=== PATIENT | male | born 1950 | race Caucasian/White ===

== ENCOUNTER 2019-03-27 08:33 | Outpatient (CLI) | payer MEDICARE, SELFPAY ==
[2019-03-27 09:00] LABS: Creatinine Urine 123.23 mg/dL (40-278)
[2019-03-27 09:02] LABS: Hemoglobin A1C 7.2 % (<5.7)
[2019-03-27 09:29] LABS: MALB Creatinine Ratio 9.9 mg/g (0-30); Microalbumin Urine Random 12.3 mg/L
[2019-03-27 10:42] LABS: Anion Gap 14.7 mmol/L (7-16); Blood Urea Nitrogen 16 mg/dL (7-18); Calcium 9.1 mg/dL (8.5-10.1); Carbon Dioxide 28 mmol/L (21-32); Chloride 106 mmol/L (98-108); Cholesterol 121 mg/dL (0-200); Estimated Glomerular Filt Rate > 60; Glucose 103 mg/dL (70-99); HDL Direct 34 mg/dL (40-60); LDL Cholesterol Calculated 76 mg/dL (<130); Osmolality Calculated 299 mOsm/kg (285-295); Potassium 4.7 mmol/L (3.5-5.1); Sodium 144 mmol/L (136-145); Triglycerides 56 mg/dL (0-150)
== END 2019-03-27 08:34 | disposition home or self-care (01) ==
PROVIDERS: PCP Family Medicine; Visit Provider Family Medicine
DX: E78.5 Hyperlipidemia, unspecified (principal); E11.9 Type 2 diabetes mellitus without complications
CPT/HCPCS: 36415; 80048; 80061; 82043; 83036

== ENCOUNTER 2019-06-26 08:52 | Outpatient (CLI) | payer MEDICARE, SELFPAY ==
[2019-06-26 09:16] LABS: Hemoglobin A1C 8.2 % (<5.7)
== END 2019-06-26 08:53 | disposition home or self-care (01) ==
PROVIDERS: PCP Family Medicine; Visit Provider Family Medicine
DX: E11.9 Type 2 diabetes mellitus without complications (principal)
CPT/HCPCS: 36415; 83036

== ENCOUNTER 2019-10-11 14:57 | Outpatient (CLI) | payer MEDICARE, SELFPAY ==
[2019-10-11 15:07] LABS: Basophils Absolute Auto 0.04 K/mm3 (0.00-0.10); Basophils Percent Auto 0.4 % (0.0-1.0); Eosinophils Absolute Auto 0.58 K/mm3 (0.02-0.50); Eosinophils Percent Auto 6.1 % (1.0-6.0); Hemoglobin 15.2 g/dL (12.4-15.3); Immature Granulocyte Absolute 0.04 K/mm3 (0.00-0.00); Immature Granulocyte Percent A 0.4 % (0.0-0.0); Lymphocytes Absolute Auto 1.71 K/mm3 (1.10-4.50); Lymphocytes Percent Auto 17.9 % (18.0-42.0); Mean Corpuscular Hemoglobin 29.5 pg (27.0-31.0); Mean Corpuscular Volume 89.3 fL (78.0-102.0); Mean Platelet Volume 9.9 fl (8.7-11.0); Monocytes Absolute Auto 0.75 K/mm3 (0.10-0.90); Monocytes Percent Auto 7.9 % (2.0-11.0); Neutrophils Absolute Auto 6.4 K/mm3 (1.7-7.2); Neutrophils Percent Auto 67.3 % (50.0-70.0); Platelet Count Result 269 K/mm3 (150-420); Red Blood Count 5.15 M/mm3 (4.70-6.10); Red Cell Distribution Width 12.9 % (11.6-14.4); White Blood Count 9.5 K/mm3 (4.8-10.8)
[2019-10-11 15:24] LABS: Hemoglobin A1C 7.1 % (<5.7)
[2019-10-11 16:02] LABS: Alanine Aminotransferase 27 U/L (16-63); Albumin Level 4.5 g/dL (3.4-5.0); Alkaline Phosphatase 64 U/L (46-116); Anion Gap 8 mmol/L (8-16); Aspartate Amino Transferase 15 U/L (15-37); Bilirubin,Total 0.6 mg/dL (0.00-1.00); Blood Urea Nitrogen 20 mg/dL (7-18); Calcium 10.4 mg/dL (8.5-10.1); Carbon Dioxide 29 mmol/L (21-32); Chloride 103 mmol/L (98-108); Estimated Glomerular Filt Rate > 60; Glucose 133 mg/dL (70-99); Osmolality Calculated 294 mOsm/kg (285-295); Sodium 140 mmol/L (136-145); Total Protein 7.5 g/dL (6.4-8.2)
[2019-10-11 16:04] LABS: Thyroid Stimulating Hormone Reflex 1.29 u/IU/mL (0.36-3.74)
== END 2019-10-11 14:58 | disposition home or self-care (01) ==
LOC: CHSLAB 14:59
PROVIDERS: PCP Family Medicine; Visit Provider Family Medicine
DX: E11.9 Type 2 diabetes mellitus without complications (principal)
CPT/HCPCS: 36415; 80053; 83036; 84443; 85025

== ENCOUNTER 2020-01-10 14:55 | Outpatient (CLI) | payer MEDICARE, SELFPAY ==
[2020-01-10 15:11] LABS: Basophils Absolute Auto 0.05 K/mm3 (0.00-0.10); Basophils Percent Auto 0.6 % (0.0-1.0); Eosinophils Absolute Auto 0.51 K/mm3 (0.02-0.50); Eosinophils Percent Auto 6.2 % (1.0-6.0); Hematocrit 46.8 % (37.0-46.0); Hemoglobin 15.2 g/dL (12.4-15.3); Immature Granulocyte Absolute 0.05 K/mm3 (0.00-0.00); Immature Granulocyte Percent A 0.6 % (0.0-0.0); Lymphocytes Absolute Auto 1.74 K/mm3 (1.10-4.50); Lymphocytes Percent Auto 21.3 % (18.0-42.0); Mean Corpuscular HGB Conc 32.5 g/dL (32.0-36.0); Mean Corpuscular Hemoglobin 28.6 pg (27.0-31.0); Mean Corpuscular Volume 88.1 fL (78.0-102.0); Mean Platelet Volume 10.1 fl (8.7-11.0); Monocytes Absolute Auto 0.59 K/mm3 (0.10-0.90); Monocytes Percent Auto 7.2 % (2.0-11.0); Neutrophils Absolute Auto 5.2 K/mm3 (1.7-7.2); Neutrophils Percent Auto 64.1 % (50.0-70.0); Platelet Count Result 243 K/mm3 (150-420); Red Blood Count 5.31 M/mm3 (4.70-6.10); White Blood Count 8.2 K/mm3 (4.8-10.8)
[2020-01-10 15:21] LABS: Hemoglobin A1C 7.1 % (<5.7)
[2020-01-10 17:06] LABS: Alanine Aminotransferase 25 U/L (16-63); Albumin Level 4.1 g/dL (3.4-5.0); Alkaline Phosphatase 54 U/L (46-116); Anion Gap 10 mmol/L (8-16); Aspartate Amino Transferase 14 U/L (15-37); Bilirubin,Total 0.4 mg/dL (0.00-1.00); Blood Urea Nitrogen 18 mg/dL (7-18); Calcium 9.9 mg/dL (8.5-10.1); Carbon Dioxide 26 mmol/L (21-32); Chloride 103 mmol/L (98-108); Estimated Glomerular Filt Rate > 60; Glucose 144 mg/dL (70-99); Osmolality Calculated 292 mOsm/kg (285-295); Potassium 4.9 mmol/L (3.5-5.1); Sodium 139 mmol/L (136-145); Total Protein 7.2 g/dL (6.4-8.2)
== END 2020-01-10 14:56 | disposition home or self-care (01) ==
LOC: CHSLAB 14:57
PROVIDERS: PCP Family Medicine; Visit Provider Family Medicine
DX: E11.9 Type 2 diabetes mellitus without complications (principal)
CPT/HCPCS: 36415; 80053; 83036; 85025

== ENCOUNTER 2020-07-10 14:28 | Outpatient (CLI) | payer MEDICARE, SELFPAY ==
[2020-07-10 14:38] LABS: Basophils Absolute Auto 0.04 K/mm3 (0.00-0.10); Basophils Percent Auto 0.5 % (0.0-1.0); Eosinophils Absolute Auto 0.53 K/mm3 (0.02-0.50); Eosinophils Percent Auto 6.7 % (1.0-6.0); Hematocrit 44.3 % (37.0-46.0); Hemoglobin 14.6 g/dL (12.4-15.3); Immature Granulocyte Absolute 0.05 K/mm3 (0.00-0.00); Immature Granulocyte Percent A 0.6 % (0.0-0.0); Lymphocytes Absolute Auto 1.64 K/mm3 (1.10-4.50); Lymphocytes Percent Auto 20.8 % (18.0-42.0); Mean Corpuscular Hemoglobin 29.1 pg (27.0-31.0); Mean Corpuscular Volume 88.2 fL (78.0-102.0); Monocytes Absolute Auto 0.63 K/mm3 (0.10-0.90); Neutrophils Percent Auto 63.4 % (50.0-70.0); Platelet Count Result 249 K/mm3 (150-420); Red Blood Count 5.02 M/mm3 (4.70-6.10); Red Cell Distribution Width 13.2 % (11.6-14.4); White Blood Count 7.9 K/mm3 (4.8-10.8)
[2020-07-10 14:48] LABS: Hemoglobin A1C 8.1 % (<5.7)
[2020-07-10 16:09] LABS: Alanine Aminotransferase 32 U/L (16-63); Albumin Level 3.9 g/dL (3.4-5.0); Alkaline Phosphatase 56 U/L (46-116); Anion Gap 9 mmol/L (8-16); Aspartate Amino Transferase 27 U/L (15-37); Bilirubin,Total 0.6 mg/dL (0.00-1.00); Blood Urea Nitrogen 19 mg/dL (7-18); Calcium 9.3 mg/dL (8.5-10.1); Carbon Dioxide 26 mmol/L (21-32); Chloride 103 mmol/L (98-108); Estimated Glomerular Filt Rate > 60; Glucose 151 mg/dL (70-99); Osmolality Calculated 291 mOsm/kg (285-295); Prostate Specific Antigen 5.2 ng/mL (< OR = 4.0); Sodium 138 mmol/L (136-145); Total Protein 6.9 g/dL (6.4-8.2)
[2020-07-13 13:51] LABS: Testosterone Free 46.5 pg/mL (35.0-155.0); Testosterone Total 229 ng/dL (250-1100)
== END 2020-07-10 14:29 | disposition home or self-care (01) ==
LOC: CHSLAB 14:30
PROVIDERS: PCP Family Medicine; Visit Provider Family Medicine
DX: E11.9 Type 2 diabetes mellitus without complications (principal); N52.9 Male erectile dysfunction, unspecified; R39.198 Other difficulties with micturition; Z12.5 Encounter for screening for malignant neoplasm of prostate
CPT/HCPCS: 36415; 80053; 83036; 84153; 84402; 84403; 85025; G0103

== ENCOUNTER 2022-03-30 10:52 | Outpatient (CLI) | payer MEDICARE, SELFPAY ==
[2022-03-30 11:21] LABS: Basophils Absolute Auto 0.04 K/mm3 (0.00-0.10); Basophils Percent Auto 0.5 % (0.0-1.0); Eosinophils Absolute Auto 0.37 K/mm3 (0.02-0.50); Eosinophils Percent Auto 4.4 % (1.0-6.0); Hematocrit 45.3 % (37.0-46.0); Hemoglobin 14.9 g/dL (12.4-15.3); Immature Granulocyte Absolute 0.04 K/mm3 (0.00-0.00); Immature Granulocyte Percent A 0.5 % (0.0-0.0); Lymphocytes Percent Auto 19.2 % (18.0-42.0); Mean Corpuscular HGB Conc 32.9 g/dL (32.0-36.0); Mean Corpuscular Hemoglobin 29.4 pg (27.0-31.0); Mean Corpuscular Volume 89.3 fL (78.0-102.0); Mean Platelet Volume 10.4 fl (8.7-11.0); Monocytes Absolute Auto 0.57 K/mm3 (0.10-0.90); Monocytes Percent Auto 6.9 % (2.0-11.0); Neutrophils Absolute Auto 5.7 K/mm3 (1.7-7.2); Neutrophils Percent Auto 68.5 % (50.0-70.0); Platelet Count Result 269 K/mm3 (150-420); Red Blood Count 5.07 M/mm3 (4.70-6.10); Red Cell Distribution Width 12.7 % (11.6-14.4); White Blood Count 8.3 K/mm3 (4.8-10.8)
[2022-03-30 11:28] LABS: Hemoglobin A1C 7.6 % (<5.7)
[2022-03-30 11:40] LABS: Alanine Aminotransferase 21 U/L (16-63); Albumin Level 3.8 g/dL (3.4-5.0); Alkaline Phosphatase 55 U/L (46-116); Anion Gap 8 mmol/L (8-16); Aspartate Amino Transferase 13 U/L (15-37); Bilirubin,Total 0.3 mg/dL (0.00-1.00); Blood Urea Nitrogen 24 mg/dL (7-18); Calcium 9.7 mg/dL (8.5-10.1); Carbon Dioxide 29 mmol/L (21-32); Chloride 103 mmol/L (98-108); Cholesterol 133 mg/dL (0-200); Estimated Glomerular Filt Rate > 60; Glucose 156 mg/dL (70-99); HDL Direct 31 mg/dL (40-60); LDL Cholesterol Calculated 79 mg/dL (<130); Osmolality Calculated 297 mOsm/kg (285-295); Potassium 4.8 mmol/L (3.5-5.1); Sodium 140 mmol/L (136-145); Total Protein 7.2 g/dL (6.4-8.2); Triglycerides 113 mg/dL (0-150)
== END 2022-03-30 10:53 | disposition home or self-care (01) ==
LOC: CHSLAB 10:53
PROVIDERS: PCP Nurse Practitioner Family; Visit Provider Nurse Practitioner Family
DX: E11.9 Type 2 diabetes mellitus without complications (principal); R97.20 Elevated prostate specific antigen [PSA]; E78.5 Hyperlipidemia, unspecified; I10 Essential (primary) hypertension
CPT/HCPCS: 36415; 80053; 80061; 83036; 84153; 85025

== ENCOUNTER 2023-10-15 14:20 | Outpatient (CLI) | payer MEDICARE, SELFPAY ==
[2023-10-15 14:35] LABS: Basophils Absolute Auto 0.03 K/mm3 (0.00-0.10); Basophils Percent Auto 0.4 % (0.0-1.0); Eosinophils Absolute Auto 0.23 K/mm3 (0.02-0.50); Eosinophils Percent Auto 2.7 % (1.0-6.0); Hematocrit 44.1 % (37.0-46.0); Hemoglobin 14.6 g/dL (12.4-15.3); Immature Granulocyte Absolute 0.05 K/mm3 (0.00-0.00); Immature Granulocyte Percent A 0.6 % (0.0-0.0); Lymphocytes Absolute Auto 1.64 K/mm3 (1.10-4.50); Lymphocytes Percent Auto 19.2 % (18.0-42.0); Mean Corpuscular HGB Conc 33.1 g/dL (32-36); Mean Corpuscular Hemoglobin 29.1 pg (27.0-31.0); Mean Corpuscular Volume 87.8 fL (78.0-102.0); Monocytes Absolute Auto 0.67 K/mm3 (0.10-0.90); Monocytes Percent Auto 7.8 % (2.0-11.0); Neutrophils Absolute Auto 5.92 K/mm3 (1.70-7.20); Neutrophils Percent Auto 69.3 % (50.0-70.0); Platelet Count Result 257 K/mm3 (150-420); Red Blood Count 5.02 M/mm3 (4.70-6.10); White Blood Count 8.5 K/mm3 (4.8-10.8)
[2023-10-15 16:51] LABS: Hemoglobin A1C 7.5 % (<5.7)
[2023-10-15 16:52] LABS: Alanine Aminotransferase 15 U/L (6-50); Albumin Level 4.3 g/dL (3.5-5.1); Alkaline Phosphatase 50 U/L (38-126); Anion Gap 8 mmol/L (4-12); Aspartate Amino Transferase 21 U/L (17-59); Bilirubin,Total 0.5 mg/dL (0.2-1.3); Blood Urea Nitrogen 21 mg/dL (9-20); Calcium 10.2 mg/dL (8.4-10.2); Carbon Dioxide 30 mmol/L (22-30); Chloride 99 mmol/L (98-107); Cholesterol 208 mg/dL (0-200); Estimated Glomerular Filt Rate > 60; Glucose 155 mg/dL (65-110); HDL Direct 33 mg/dL; LDL Cholesterol Calculated 130 mg/dL (<130); Osmolality Calculated 290 mOsm/kg (285-295); Potassium 4.9 mmol/L (3.4-5.0); Sodium 137 mmol/L (137-145); Triglycerides 223 mg/dL (<150)
[2023-10-15 22:18] LABS: Creatinine Urine 119.6 mg/dL
[2023-10-15 22:24] LABS: MALB Creatinine Ratio 14.8 mg/g (0-30); Microalbumin Urine Random 17.7 mg/L (0-16.7)
== END 2023-10-15 14:21 | disposition home or self-care (01) ==
LOC: CHSLAB 14:22
PROVIDERS: PCP Nurse Practitioner Family; Visit Provider Nurse Practitioner Family
DX: E11.9 Type 2 diabetes mellitus without complications (principal)
CPT/HCPCS: 36415; 80053; 80061; 82043; 83036; 84443; 85025

== ENCOUNTER 2023-11-11 15:02 | Emergency (ER) | payer MEDICARE, SELFPAY ==
[2023-11-11 15:03] VITALS: BP 171/76; PULSE 75; RESP 18; TEMP 36.4; O2SAT 95
[2023-11-11 15:53] LABS: Basophils Absolute Auto 0.04 K/mm3 (0.00-0.10); Basophils Percent Auto 0.4 % (0.0-1.0); Eosinophils Absolute Auto 0.19 K/mm3 (0.02-0.50); Eosinophils Percent Auto 1.9 % (1.0-6.0); Hematocrit 40.4 % (37.0-46.0); Hemoglobin 13.6 g/dL (12.4-15.3); Immature Granulocyte Absolute 0.14 K/mm3 (0.00-0.00); Immature Granulocyte Percent A 1.4 % (0.0-0.0); Lymphocytes Absolute Auto 1.27 K/mm3 (1.10-4.50); Lymphocytes Percent Auto 12.8 % (18.0-42.0); Mean Corpuscular HGB Conc 33.7 g/dL (32-36); Mean Corpuscular Hemoglobin 28.8 pg (27.0-31.0); Mean Corpuscular Volume 85.6 fL (78.0-102.0); Mean Platelet Volume 9.6 fl (8.7-11.0); Monocytes Absolute Auto 0.97 K/mm3 (0.10-0.90); Monocytes Percent Auto 9.8 % (2.0-11.0); Neutrophils Percent Auto 73.7 % (50.0-70.0); Platelet Count Result 250 K/mm3 (150-420); Red Blood Count 4.72 M/mm3 (4.70-6.10); Red Cell Distribution Width 12.9 % (11.6-14.4); White Blood Count 9.9 K/mm3 (4.8-10.8)
[2023-11-11] MEDS: SODIUM CHLORIDE 0.9% IV 1,000 ML 999 ML IV CONT (15:58)
[2023-11-11] MEDS: ONDANSETRON INJ 4 MG/2 ML VIAL IV PUSH (16:00)
[2023-11-11 16:09] LABS: Alanine Aminotransferase 12 U/L (16-63); Albumin Level 2.8 g/dL (3.4-5.0); Alkaline Phosphatase 55 U/L (46-116); Anion Gap 10 mmol/L (4-12); Aspartate Amino Transferase 13 U/L (15-37); Bilirubin,Total 0.6 mg/dL (0.00-1.00); Blood Urea Nitrogen 12 mg/dL (7-18); Calcium 8.4 mg/dL (8.5-10.1); Carbon Dioxide 27 mmol/L (21-32); Chloride 101 mmol/L (98-108); Estimated CRCL calculation 60 ml/min; Estimated Glomerular Filt Rate > 60; Glucose 198 mg/dL (70-99); Osmolality Calculated 291 mOsm/kg (285-295); Potassium 3.7 mmol/L (3.5-5.1); Sodium 138 mmol/L (136-145); Total Protein 6.4 g/dL (6.4-8.2)
--- NOTE | 2023-11-11 16:52 | ED.NAVMDI ---
HPI - Nausea/Vomiting/Diarrhea General Stated complaint: vomiting Time Seen by Provider: 11/11/23 15:07 Source: patient and family Mode of arrival: ambulatory Limitations: no limitations History of Present Illness HPI Narrative: this is a 73 year male who presents with nausea vomiting diarrhea off and on for the past week apparently was eating at a local restaurant that had an outbreak of Shigella and concerned about Shigella infection. Patient currently doing well has vital signs that are stable has a history of diabetes no abdominal pain no bloody diarrhea no fever chills. MD elicited complaint: nausea, vomiting and diarrhea Onset (ago): day(s) Description of vomiting: watery Associated nausea: Yes Associated abdominal pain: No Location of pain: none Severity: mild Related Data Allergies Allergy/AdvReac Type Severity Reaction Status Date / Time Penicillins Allergy Intermediate unknown Verified 10/15/23 13:16 tetanus toxoid, adsorbed Allergy Intermediate Unknown Verified 10/15/23 13:16 Review of Systems Review of Systems: All systems reviewed & are unremarkable except as noted in HPI and below PMFSH Past Medical History Medical History KATHY-inhibitor cough Contact dermatitis due to plant Cough Decreased urine stream DM2 (diabetes mellitus, type 2) Elevated PSA Hyperlipidemia Impotence due to erectile dysfunction Screening for prostate cancer Surgical History Surgical History History of back surgery 1994 & 1999 Family History Family History Father , Age 42. Diabetic Coma/Alcoholic. Diabetes mellitus Mother , Age 70's. in sleep. No problems noted. Social History Social History Smoking status: Never smoker Alcohol intake: never Substance use type: does not use Lack of Transportation: No Lack of Food: Never True Current Housing: I Have Housing Concerned About Future Housing: No Difficulty Paying Gas/Electric Bills: No Difficulty Paying for Meds: No Currently Unemployed: No Difficulty w/ Childcare or Family Care: No Living arrangements: with family Additional living arrangements comments: . 4 Children. 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 Exam Const: General: healthy appearing and no acute distress Nutritional Appearance: well nourished Orientation/consciousness: patient oriented x3 Limitations: no limitations HENMT: Head: normal to inspection Neck: Neck: normal visual inspection, no lymphadenopathy and no meningeal signs Chest: Chest palpation & inspection: normal inspection of the chest Resp: Effort & Inspection: normal respiratory effort Auscultation: clear to auscultation bilaterally Cardio: Rate: regular rate Rhythm: regular rhythm GI: GI Palp: Yes Soft to palpation Auscultation: normal bowel sounds : General: Yes bladder normal to palpation Back/Spine/Pelvis: Back: no CVA tenderness Skin: General skin exam: normal color Course Course Emergency Course: Patient received IV fluids and IV Zofran had blood work performed CBC and a CMP which were with essentially within normal limits and stool for stool culture was obtained. Vital Signs Vital signs: Vital Signs Temperature 36.4 C 11/11/23 15:03 Pulse Rate 75 11/11/23 15:03 Respiratory Rate 18 11/11/23 15:03 Blood Pressure 171/76 H 11/11/23 15:03 Pulse Oximetry 95 11/11/23 15:03 Oxygen Delivery Room Air 11/11/23 15:03 Temperature 36.4 C 11/11/23 15:03 Pulse Rate 75 11/11/23 15:03 Respiratory Rate 18 11/11/23 15:03 Blood Pressure 171/76 H 11/11/23 15:03 Pulse Oximetry 95 11/11/23 15:03 Oxygen Delivery Room Air
--- NOTE | 2023-11-11 16:59 | PC.NURSE ---
karne Tanner, collected stool sample and sent to lab
[2023-11-11 17:13] VITALS: BP 145/78; PULSE 67; RESP 12; TEMP 36.8; O2SAT 94
--- NOTE | 2023-11-13 13:52 | PC.NURSE ---
final stool culture report reviewed. shiga toxins not detected, campylobacter not detected. no change in plan of care
--- NOTE | 2023-11-14 14:11 | PC.NURSE ---
final stool culture report reviewed. shiga toxins not detected, campylobacter not detected. no change in plan of care
--- NOTE | 2023-11-15 13:12 | PC.NURSE ---
FINAL FECES CULTURE REPORT: POSITIVE FOR SHIGELLA FLEXNERI, RN CALLED PATIENT HE IS FEELING MUCH BETTER, HAS A FOLLOW UP APPOINTMENT TODAY. PATIENT WAS DISCHARGED ON CIPRO 500MG X7 DAYS. ERP DR. MCMAHON STATES NO NEED TO CHANGE ANTIBIOTIC SINCE PATIENT HAS HAD IMPROVEMENT.
== END 2023-11-11 17:22 | disposition home or self-care (01) ==
PROVIDERS: Emergency Provider Emergency Medicine; PCP Nurse Practitioner Family
DX: K52.9 Noninfective gastroenteritis and colitis, unspecified (principal); E11.9 Type 2 diabetes mellitus without complications; E78.5 Hyperlipidemia, unspecified
CPT/HCPCS: 36415; 80053; 85025; 87045; 87147; 87186; 87427; 87449; 96361; 96374; 99284; J2405; J7030

== ENCOUNTER 2023-11-22 06:18 | Outpatient (NON) | payer MEDICARE, SELFPAY | END 2023-11-22 06:19 | disposition home or self-care (01) | LOC: CHSLAB 06:19 | PROVIDERS: Visit Provider Nurse Practitioner Family | DX: A00-B99 Certain infectious and parasitic diseases (principal) | CPT/HCPCS: 87045; 87427; 87449 ==

== ENCOUNTER 2025-01-15 10:38 | Outpatient (CLI) | payer MEDICARE, SELFPAY ==
--- NOTE | ~2025-01-15 | MR_ITS ---
EXAM/PROCEDURE: MR lumbar spine wo con HISTORY: M54.50 - Low back pain, unspecified COMPARISON: None available. TECHNIQUE: Multiplanar lumbar spine MRI without contrast FINDINGS: Degenerative changes present throughout the lumbar spine involving disc spaces and posterior elements. The conus tapers normally at L1. Right-sided laminectomy changes may be present at L5. Level specific findings as follows: T12-L1: Mild degenerative change L1-2: Moderate degenerative disc and facet changes with no spinal canal stenosis or discrete disc protrusion. Mild to moderate bilateral neural foraminal narrowing. L2-3: Moderate degenerative disc and facet changes with slightly eccentric/worse hyperostosis and thickening of ligamentum flavum on the right side at this level resulting in stenosis in the right lateral recess. See image 13 series 5. No spinal canal stenosis or discrete disc protrusion. Mild to moderate bilateral neural foraminal narrowing. L3-4: Moderately severe degenerative disc and facet changes with no spinal canal stenosis or discrete disc protrusion. Borderline stenosis in the lateral recesses. Moderate bilateral neural foraminal narrowing. L4-5: Severe desiccation and disc space narrowing with right-sided laminectomy changes. No spinal canal stenosis. Moderate to severe left and moderate right- sided neural from narrowing. Soft tissue prominence in the right lateral recess may represent mild fibrosing changes and possible stenosis of the right lateral recess. L5-S1: Moderately severe broad-based disc bulging with borderline spinal canal stenosis. Stenosis developing in the right lateral recess. Mild to moderate bilateral neural foraminal narrowing. No discrete disc protrusion. IMPRESSION: Multilevel degenerative changes throughout the lumbar spine as well as right- sided laminectomy changes at L5. See level specific findings as detailed above. Reviewed, dictated and finalized at location A. INSTRUCTOR IMPRESSION: Multilevel degenerative changes throughout the lumbar spine as well as right-si ded laminectomy changes at L5. See level specific findings as detailed above.
--- NOTE | ~2025-01-15 | MR_ITS ---
EXAM/PROCEDURE: MR hip LT wo con HISTORY: M54.50 - Low back pain, unspecified COMPARISON: None available. TECHNIQUE: Multiplanar noncontrast left hip MRI FINDINGS: Moderately advanced osteoarthritic appearing diffuse cartilaginous thinning noted with no fracture subluxation or dislocation. No definite labral tear on this nonarthrographic series. No acute or aggressive bony or soft tissue process seen. Extra articular soft tissues appear within normal limits. 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 Reviewed, dictated and finalized at location A. K CATERER
--- NOTE | ~2025-01-15 | MR_ITS ---
EXAM/PROCEDURE: MR hip RT wo con HISTORY: M54.50 - Low back pain, unspecified COMPARISON: None available. TECHNIQUE: Right hip MRI multiplanar sequences without contrast FINDINGS: No fracture subluxation or dislocation. No gross acute or aggressive bony or soft tissue process seen. Moderately advanced osteoarthritic degenerative changes. No definite labral tear. Extra articular soft tissues appear within normal limits. IMPRESSION: Moderate osteoarthritic degenerative appearing changes of the right hip. No acute or aggressive bony or soft tissue process. Reviewed, dictated and finalized at location A. CING TECHNICIAN IMPRESSION: Moderate osteoarthritic degenerative appearing changes of the right hip. No acu te or aggressive bony or soft tissue process.
== END 2025-01-15 10:39 | disposition home or self-care (01) ==
LOC: ANHIMG 10:41
PROVIDERS: PCP Nurse Practitioner Family; Visit Provider Nurse Practitioner Family
DX: M16.0 Bilateral primary osteoarthritis of hip (principal); M47.896 Other spondylosis, lumbar region
CPT/HCPCS: 72148; 73721